=== PATIENT | female | born 1990 | race Hispanic/Latino ===

== ENCOUNTER → 2021-04-30 | Outpatient (CLI) | payer OTHER ==
--- NOTE | 2021-04-30 15:27 | PFTRPT ---
Site: [facility], [address] [place], [address] ID: [id number] Name: KALA PAIZ Visit Date: 04/30/2021 Second ID: [id number] Referring Doctor: Cyndie Castanon Reviewing Doctor: José Luis Christianson MD It Training Specialist: Marisol SALAZAR RRT Age: 30 : 1990 Sex: Female Race: Height: 66.00 Inches Weight: 155.00 Lbs BSA: 1.79 Order IDs: [id number] Requested Test(s): <RESP-PFT.PFT B/A> Diagnosis: R06.02 test meet the ATS standards for acceptability and repeatability. Pt was given four puffs of albuterol for post bronchodilator. Review Status: Not Reviewed Pre-Bronch Post-Bronch Pred Actual %Pred Actual %Chng SPIROMETRY FVC (L) 3.97 3.98 100 3.65 -8 FEV1 (L) 3.37 3.46 102 3.37 -2 FEV1/FVC (%) 85 87 102 92 6 FEF 25% (L/sec) 5.85 6.30 107 6.28 FEF 50% (L/sec) 4.43 4.82 108 4.55 -5 FEF 75% (L/sec) 1.84 2.32 126 1.79 -22 FEF 25-75% (L/sec) 3.75 4.25 113 3.81 -10 FEF Max (L/sec) 7.41 7.37 99 6.89 -6 FIVC (L) 3.99 3.15 -21 FIF 50% (L/sec) 4.05 4.24 104 1.69 -60 FIF Max (L/sec) 4.24 3.04 -28 MVV (L/min) 111 98 88 Expiratory Time (sec) 6.90 6.45 -6 Back Extrap Vol (L) 0.15 0.14 -10 Time To FEFmax (sec) 0.089 0.093 4 LUNG VOLUMES SVC (L) 3.82 3.97 103 IC (L) 2.40 2.97 123 ERV (L) 1.42 1.00 70 TGV (L) 2.95 2.89 98 RV (Pleth) (L) 1.53 1.89 123 TLC (Pleth) (L) 5.35 5.87 109 RV/TLC (Pleth) (%) 28 32 115 DIFFUSION DLCOunc (ml/min/mmHg) 25.50 21.28 83 DLCOcor (ml/min/mmHg) 25.50 23.60 92 DL/VA (ml/min/mmHg/L) 4.77 4.71 98 VA (L) 5.35 5.01 93 BHT (sec) 10.18 IVC (L) 3.97 TLC (SB) (L) 5.16 AIRWAYS RESISTANCE Raw (cmH2O/L/s) 1.86 0.36 19 Gaw (L/s/cmH2O) 1.03 3.11 302 sRaw (cmH2O*s) 4.76 0.99 20 sGaw (1/cmH2O*s) 0.20 1.13 566 BLOOD GASES Hgb (gm/dL) 10.6
== END ==
LOC: M CARPUL 14:47
PROVIDERS: ATTEND Nurse Practitioner Adult Health
DX: R06.02 Shortness of breath (principal)

== ENCOUNTER → 2021-05-05 | Outpatient (CLI) | payer OTHER ==
[~2021-05-05] MED LIST: METHACHOLINE KIT (J7674) INH ONE
--- NOTE | 2021-05-05 15:45 | PFTRPT ---
Site: [facility], [address] [place], [address] ID: [id number] Name: KALA PAIZ Visit Date: 05/05/2021 Second ID: [id number] Referring Doctor: Cyndie Castanon Reviewing Doctor: José Luis Christianson MD Forest Fire Management Officer: Marisol SALAZAR RRT Age: 30 : 1990 Sex: Female Race: Height: 66.00 Inches Weight: 155.00 Lbs BSA: 1.79 Order IDs: [id number] Requested Test(s): <RESP-PFT.METH CHAL> Diagnosis: R06.02 puffs of albuterol for post bronchodilator. Review Status: Not Reviewed Pre-Bronch Post-Bronch Pred Actual %Pred Actual %Chng SPIROMETRY FVC (L) 3.97 3.77 95 3.90 3 FEV1 (L) 3.37 3.18 94 3.52 10 FEV1/FVC (%) 85 84 99 90 7 FEF 25% (L/sec) 5.85 6.47 110 5.92 -8 FEF 50% (L/sec) 4.43 4.80 108 4.95 3 FEF 75% (L/sec) 1.84 1.62 88 2.88 77 FEF 25-75% (L/sec) 3.75 3.86 102 4.52 17 FEF Max (L/sec) 7.41 7.20 97 7.17 FIVC (L) 3.19 3.96 23 FIF 50% (L/sec) 4.05 3.19 78 2.73 -14 FIF Max (L/sec) 3.71 2.99 -19 Expiratory Time (sec) 6.56 6.49 -1 Back Extrap Vol (L) 0.13 0.10 -22 Time To FEFmax (sec) 0.085 0.075 -11
== END ==
LOC: M CARPUL 14:40
PROVIDERS: ATTEND Nurse Practitioner Adult Health
DX: R06.02 Shortness of breath (principal)
CPT/HCPCS: 94070; J7674

== ENCOUNTER → 2021-09-30 | Outpatient (CLI) | payer OTHER ==
[2021-09-30 16:54] LABS: BASO # 0.1 10^3/uL (0.0-0.2); BASO % 1.1 % (0.0-1.0); EOS # 0.2 10^3/uL (0.0-0.5); EOS % 2.5 % (0.0-3.0); HEMATOCRIT 36.6 % (36.0-47.0); HEMOGLOBIN 11.9 g/dl (12.0-15.5); LYMPH # 2.8 10^3/uL (1.5-5.0); LYMPH % 38.6 % (24.0-44.0); MEAN CORPUSCULAR HEMOGLOBIN 27.7 pg (27.0-33.0); MEAN CORPUSCULAR HGB CONC 32.5 g/dl (32.0-36.5); MEAN CORPUSCULAR VOLUME 85.3 fl (80.0-96.0); MONO # 0.6 10^3/uL (0.0-0.8); MONO % 8.1 % (2.0-8.0); NEUTROPHILS # 3.6 10^3/uL (1.5-8.5); NEUTROPHILS % 49.4 % (36.0-66.0); PLATELET COUNT, AUTOMATED 321 10^3/uL (150-450); RED BLOOD COUNT 4.29 10^6/uL (4.00-5.40); WHITE BLOOD COUNT 7.2 10^3/uL (4.0-10.0)
== END ==
LOC: M LAB 15:42
PROVIDERS: ATTEND Internal Medicine Pulmonary Disease
DX: J45.40 Moderate persistent asthma, uncomplicated (principal)

== ENCOUNTER → 2022-09-15 | Outpatient (REF) | payer OTHER ==
[~2022-09-15] MED LIST changes: +ADV250INH INH; -METHACHOLINE KIT (J7674) INH ONE; +VALT1TAB PO; +VITA100093 PO; +VITMTA PO
[2022-09-15 18:14] LABS: GC DNA AMPLIFICATION NEGATIVE (NEGATIVE)
== END ==
LOC: M LAB REF 16:17
PROVIDERS: ATTEND Physician Assistant
DX: Z20.2 Contact with and (suspected) exposure to infections with a predominantly sexual mode of transmission (principal)

== ENCOUNTER 2022-09-21 06:11 | Day surgery (SDC) | payer OTHER ==
[~2022-09-21] VITALS: Ht 167.6 cm; Wt 69.4 kg
[2022-09-21] MEDS ORDERED: LR 1,000 ML IV SCH ×2 (06:40→09:00)
[2022-09-21 06:56] LABS: HEMATOCRIT 35.6 % (36.0-47.0); HEMOGLOBIN 11.3 g/dl (12.0-15.5)
[2022-09-21] MEDS ORDERED: LIDOCAINE 2% 100MG/5ML SDV (FOR ANES.) As Ordered ONE (07:06)
[2022-09-21] MEDS ORDERED: MIDAZOLAM INJ 2MG/2ML VIAL As Ordered ONE (07:06)
[2022-09-21] MEDS ORDERED: ROCURONIUM BROMIDE 50MG/5ML VIAL As Ordered ONE (07:06)
[2022-09-21] MEDS ORDERED: propofoL 200 MG/20 ML VIAL As Ordered ONE (07:06)
[2022-09-21] MEDS ORDERED: fentaNYL 100 MCG/2 ML INJECTION As Ordered ONE ×2 (07:07→08:20)
[2022-09-21] MEDS ORDERED: BUPIVACAINE HCL 0.25% 30ML VIAL As Ordered ONE (07:10)
[2022-09-21] MEDS ORDERED: ACETAMINOPHEN 1000MG 100ML IV BAG As Ordered ONE (08:05)
[2022-09-21] MEDS ORDERED: ONDANSETRON 4MG 2ML VIAL As Ordered ONE (08:06)
[2022-09-21] MEDS ORDERED: KETOROLAC 60MG 2ML VIAL As Ordered ONE (08:06)
[2022-09-21] MEDS ORDERED: SUGAMMADEX SODIUM 500 MG/5 ML VIAL (BRIDION) As Ordered ONE (08:06)
[2022-09-21] MEDS ORDERED: METOCLOPRAMIDE INJ 10MG/2ML VIAL As Ordered ONE (08:11)
[2022-09-21] MEDS ORDERED: HYDROMORPHONE HCL 0.5 MG/ 0.5 ML SYRINGE IV PRN (09:00)
[2022-09-21] MEDS ORDERED: oxyCODONE 5MG TAB PO PRN ×2 (09:00→09:45)
[2022-09-21] MEDS ORDERED: fentaNYL 100 MCG/2 ML INJECTION IV PRN (09:00)
[2022-09-21] MEDS ORDERED: ONDANSETRON 4MG 2ML VIAL IV PRN (09:00)
[2022-09-21 10:45] VITALS: BP 120/58
== END 2022-09-21 14:07 | disposition home or self-care (01) ==
LOC: M SDC 06:11
PROVIDERS: ATTEND Obstetrics & Gynecology
DX: Z30.2 Encounter for sterilization (principal); Z30.8 Encounter for other contraceptive management; K21.9 Gastro-esophageal reflux disease without esophagitis; A60.00 Herpesviral infection of urogenital system, unspecified; G43.909 Migraine, unspecified, not intractable, without status migrainosus; J45.909 Unspecified asthma, uncomplicated; Z79.899 Other long term (current) drug therapy
CPT/HCPCS: 11982; 36415; 58661; 81025; 85014; 85018; 88300; 88302; J0131; J1100; J1885; J2250; J2405; J2765; J3010; S0020

== ENCOUNTER → 2023-11-23 | Outpatient (CLI) | payer OTHER | LOC: M OUTALCOH 07:38 | PROVIDERS: ATTEND Psychiatry & Neurology Psychiatry | DX: F10.20 Alcohol dependence, uncomplicated (principal) ==

== ENCOUNTER → 2023-12-23 | Outpatient (RCR) | payer OTHER | LOC: M OUTALCOH 12-01 07:35 | PROVIDERS: ATTEND Psychiatry & Neurology Psychiatry | DX: F10.20 Alcohol dependence, uncomplicated (principal) ==

== ENCOUNTER 2024-01-18 15:40 | Outpatient (RCR) | payer OTHER | END 2024-01-22 | LOC: M OUTALCOH 15:40 | PROVIDERS: ATTEND Psychiatry & Neurology Psychiatry | DX: F10.20 Alcohol dependence, uncomplicated (principal) ==

== ENCOUNTER 2024-02-15 16:00 | Outpatient (RCR) | payer OTHER | END 2024-02-22 | LOC: M OUTALCOH 16:00 | PROVIDERS: ATTEND Psychiatry & Neurology Psychiatry | DX: F10.20 Alcohol dependence, uncomplicated (principal) ==

== ENCOUNTER → 2024-07-07 | Outpatient (CLI) | payer OTHER ==
[~2024-07-07] MED LIST changes: -ADV250INH INH; +ADVA1AER9 INH
== END ==
LOC: M RAD 08:33
PROVIDERS: ATTEND Student in an Organized Health Care Education/Training Program
DX: M75.81 Other shoulder lesions, right shoulder (principal)

== ENCOUNTER → 2024-08-06 | Outpatient (CLI) | payer OTHER | LOC: M LAB 12:41 | PROVIDERS: ATTEND Nurse Practitioner Adult Health | DX: R06.02 Shortness of breath (principal) ==

== ENCOUNTER 2025-04-06 02:21 | Emergency (ER) | payer OTHER ==
[~2025-04-06] VITALS: Ht 172.7 cm; Wt 76.0 kg
[2025-04-06 03:03] LABS: PLATELET COUNT, AUTOMATED 291 10^3/uL (150-450)
[2025-04-06 03:46] LABS: AMPHETAMINES LEVEL URINE NEGATIVE (NEGATIVE); BARBITURATES URINE NEGATIVE (NEGATIVE); BENZODIAZEPINES URINE NEGATIVE (NEGATIVE); CANNABINOIDS URINE NEGATIVE (NEGATIVE); COCAINE METABOLITE URINE NEGATIVE (NEGATIVE); METHADONE URINE NEGATIVE (NEGATIVE); OPIATES URINE NEGATIVE (NEGATIVE); PHENCYCLIDINE URINE NEGATIVE (NEGATIVE)
[2025-04-06 04:34] LABS: ETHYL ALCOHOL (ETHANOL) 0.226 % (0.000-0.010)
[2025-04-06 04:36] LABS: ALT/SGPT 29 U/L (7.0-40); AST/SGOT 36 U/L (<34); CALCIUM LEVEL 9.5 MG/DL (8.5-10.1); CARBON DIOXIDE LEVEL 21 MMOL/L (20-31); CHLORIDE LEVEL 107 MMOL/L (98-107); CREATININE FOR GFR 1.09 MG/DL (0.55-1.30); GLOMERULAR FILTRATION RATE 67.5 (>60); POTASSIUM SERUM 4.3 MMOL/L (3.5-5.1); SALICYLATE LEVEL < 3.0 MG/DL (<30); SODIUM LEVEL 139 MMOL/L (136-145)
[2025-04-06] MEDS ORDERED: HOME MED LIST COMPLETE! XX SCH (10:40)
[2025-04-06 11:21] VITALS: BP 146/64; TEMP 98; O2SAT 100
== END 2025-04-06 11:28 | disposition home or self-care (01) ==
LOC: M ED 02:21
DX: F43.21 Adjustment disorder with depressed mood (principal); F10.10 Alcohol abuse, uncomplicated

== ENCOUNTER → 2025-06-13 | Outpatient (CLI) | payer OTHER | LOC: M OUTALCOH 09:01 | PROVIDERS: ATTEND Psychiatry & Neurology Psychiatry | DX: F10.20 Alcohol dependence, uncomplicated (principal) ==

== ENCOUNTER 2025-06-19 08:40 | Outpatient (RCR) | payer OTHER | END 2025-06-23 | LOC: M OUTALCOH 08:40 | PROVIDERS: ATTEND Psychiatry & Neurology Psychiatry | DX: F10.20 Alcohol dependence, uncomplicated (principal) ==

== ENCOUNTER 2025-07-22 07:48 | Outpatient (RCR) | payer OTHER | END 2025-07-24 | LOC: M OUTALCOH 07:48 | PROVIDERS: ATTEND Psychiatry & Neurology Psychiatry | DX: F10.20 Alcohol dependence, uncomplicated (principal) ==